=== PATIENT | female | born 1980 | race Caucasian/White ===

== ENCOUNTER 2025-08-05 10:10 | Observation (INO) ==
--- NOTE | 2025-08-05 10:47 | Emergency Department Note ---
Impression & Plan Urticaria ED Provider Note NAME: KARLA HUSAIN AGE: 44 SEX: F : 1980 ARRIVES VIA: Walk-In INFORMANT: Patient, ED PROVIDER(S): Winston Bazan DO CHIEF COMPLAINT: Urticaria HPI: The patient is a 44-year-old female who was sent to the emergency department by her primary care physician for admission for IV steroids. The patient started having urticaria 10 days ago. She has been on high doses of steroids. She does not seem to be doing better and was sent to the emergency department today by her primary care physician for admission. ROS: See above HPI for pertinent positives & negatives. A total of 10 systems reviewed and were otherwise negative. PAST MEDICAL HISTORY: See Below PAST SURGICAL HISTORY: See Below FAMILY HISTORY: See Below SOCIAL HISTORY: See Below HOME MEDICATIONS: See Below ALLERGIES: See Below VITALS: See Below PHYSICAL EXAMINATION: GENERAL: The patient is awake and alert. She appears somewhat anxious. EYES: The conjunctivae are injected bilaterally. The pupils are round and reactive. EARS, NOSE, MOUTH AND THROAT: The nose is without any evidence of any deformity. Mucous membranes are moist. Tongue is midline. NECK: The neck is nontender and supple. RESPIRATORY: Normal respiratory effort is noted there is no evidence of wheezing rhonchi or rales CARDIOVASCULAR: Regular rate and rhythm noted there no murmurs rubs or gallops normal S1 normal S2. GASTROINTESTINAL: The abdomen is soft. Abdomen is nontender. MUSCULOSKELETAL/EXTREMITIES: There is no evidence of gross deformity full range of motion is noted in the hips and shoulders. SKIN: There is diffuse urticaria noted from the abdomen up to the face as well as the arms. NEUROLOGIC: Patient is awake alert and oriented x3 MEDICAL DECISION MAKING: The patient is a 44-year-old female who presented to the emergency department for an evaluation of rash. The patient was seen by her primary care physician today. She was sent to the emergency department at the request of dermatology. The patient has a history of a recent thrombotic stroke. It is unclear if the patient's condition is secondary to an aspirin allergy. She did stop aspirin as well as her Plavix. The patient continues to worsen despite being treated with oral steroids. I discussed the patient's condition with her primary care physician. I discussed the patient's condition [facility]. It is possible the patient may have some underlying rheumatologic issue which could link her stroke symptoms as well as her urticaria at this time. Triage Nursing notes reviewed. Prior medical records reviewed Vital Signs: reviewed and remarkable for no significant abnormalities Differential diagnosis: Contact dermatitis, viral exanthem, urticaria, allergic reaction, Francis- Arvin syndrome, toxic epidermal necrolysis, erythema multiforme, cellulitis, scabies, HSV, varicella, zoster, eczema, staph scalded skin syndrome, fungal infection, as well as other pathologies. ER treatment provided: See below Diagnostics interpreted by me: ECG: none Cardiac Monitoring: An order was placed for continuous cardiac monitoring. The monitor shows a rate of 69 bpm with sinus rhythm. Laboratory studies: As stated above and show below. Imaging studies: See below. Consultation(s): I discussed this case with Gieslle who is on for the [facility] hospitalist group. Past Med/Surg History Problem List (Updated 08/05/25 @ 15:16 by Winston Bazan DO) Urticaria (Acute) Anxiety Medical History CVA (cerebral vascular accident) H/O pilonidal cyst Surgical History S/P breast augmentation Family History Mother Breast cancer Hypertension Grandfather Myocardial infarction Denies family history of Ovarian cancer Prostate cancer Colorectal cancer Social History Smoking Status: Never smoker Second Hand Exposure: No; Do You Dip or Chew Tobacco: No; Hx Alcohol Use: Yes Alcohol type: beer, wine and hard liquor Hx Substance Use: Yes Preferred Language: Divehi Visual Impairment: No Limitations Hearing Ability: Normal marital status: Current Living Situation: Family and Significant Other current occupational status: employed current occupation: retail Feels Safe at Home: Yes Dental Care, Regularly: Yes Physical Activity Frequency: Does not Exercise Allergies Allergies Allergy/AdvReac Type Severity Reaction Status Date / Time amoxicillin Allergy Unknown Unknown - Unverified 06/17/25 11:37 On file [facility] bee venom protein (honey bee) Allergy Unknown ANAPHYLAXIS Unverified 06/17/25 11:37 cefazolin Allergy Unknown "burning Verified 06/17/25 11:37 lungs Penicillins Allergy Unknown AMOXIL Verified 06/17/25 11:37 ALLERGY, RXN UNKNOWN Home Meds Home Medications Medication Instructions Recorded Confirmed desogestrel 0.15 mg-ethinyl 1 tab PO DAILY 06/15/25 08/05/25 estradiol 0.03 mg tablet (Apri) escitalopram oxalate 10 mg tablet 0 mg PO DAILY 06/15/25 08/05/25 lorazepam 0.5 mg tablet 0.5 mg PO TID PRN Anxiety 06/15/25 08/05/25 venlafaxine 75 mg capsule,extended 75 mg PO DAILY 06/15/25 08/05/25 release 24 hr clopidogrel 75 mg tablet 75 mg PO DAILY 08/05/25 08/05/25 cyclobenzaprine 5 mg tablet 5 mg PO DAILY PRN Other 08/05/25 08/05/25 folic acid 1 mg tablet 1 mg PO DAILY 08/05/25 08/05/25 prednisone 10 mg tablet 10 mg PO USEASDIRECTD 08/05/25 08/05/25 venlafaxine 37.5 mg 37.5 mg PO DAILY 08/05/25 08/05/25 capsule,extended release 24 hr Results & Data (ED) Vital Signs Vital Signs - 24 hr 08/05/25 10:14 08/05/25 10:50 08/05/25 10:50 Temperature 36.7 C Temperature Source Oral Pulse Rate 82 67 Pulse Rate [Apical] 67 Pulse Rhythm Regular Pulse Rhythm [Apical] Regular Pulse Strength [Apical] Normal Respiratory Rate 20 13 13 Respiratory Effort / Characteristics Non-Labored Spontaneous Non-Labored Spontaneous Respiratory Depth Normal Normal Respiratory Pattern Regular Blood Pressure 142/83 H Blood Pressure [Right Arm] 153/93 H Blood Pressure Mean 102 Blood Pressure Mean [Right Arm] 113 Blood Pressure Position [Right Arm] Sitting Pulse Oximetry 96 95 95 Oxygen Delivery Method Room Air Room Air Room Air Sepsis Recent Fever Within 48 Hours No Sepsis New/Unexplained Change in Mental Status N/A Sepsis Action Taken by Nursing No Action Required 08/05/25 11:16 Temperature Temperature Source Pulse Rate 60 Pulse Rate [Apical] Pulse Rhythm Pulse Rhythm [Apical] Pulse Strength [Apical] Respiratory Rate Respiratory Effort / Characteristics Respiratory Depth Respiratory Pattern Blood Pressure Blood Pressure [Right Arm] Blood Pressure Mean Blood Pressure Mean [Right Arm] Blood Pressure Position [Right Arm] Pulse Oximetry Oxygen Delivery Method Sepsis Recent Fever Within 48 Hours Sepsis New/Unexplained Change in Mental Status Sepsis Action Taken by [facility] Medications Current Medication List: was personally reviewed by me Laboratory Data Attestation: I reviewed the patient's lab results. 08/05/25 11:24 08/05/25 11:24 Lab Results 08/05/25 Range/Units 11:24 WBC 7.92 (4.8-10.8) K/ul RBC 5.05 (4.20-5.40) M/uL Hgb 15.2 (12.0-16.0) g/dl Hct 44.2 (37.0-47.0) % MCV 87.5 (80.0-100.0) fL MCH 30.1 (25.0-34.0) pg MCHC 34.4 (32.0-36.0) g/dL RDW Std Deviation 41.3 (36.4-46.3) fL RDW Coeff of Suzanne 12.9 (11.5-14.5) % Plt Count 291 (130-400) K/uL MPV 9.9 (9.4-12.4) fL Immature Gran % (Auto) 0.4 % Neut % (Auto) 70.9 % Lymph % (Auto) 23.0 % Mckean % (Auto) 5.6 % Eos % (Auto) 0.0 % Baso % (Auto) 0.1 % Neut # (Auto) 5.62 (1.40-6.50) K/uL Lymph # (Auto) 1.82 (1.20-3.40) K/uL Mckean # (Auto) 0.44 (0.11-0.59) K/uL Eos # (Auto) 0.00 (0.00-0.50) K/uL Baso # (Auto) 0.01 (0.00-0.20) K/uL Immature Gran # (Auto) 0.03 (0.01-0.20) K/uL Sodium 139 (136-145) mmol/L Potassium 3.8 (3.5-5.1) mmol/L Chloride 104 (98-107) mmol/L Carbon Dioxide 27 (21-32) mmol/L Anion Gap 8 (3-11) BUN 14 (6-23) mg/dl Creatinine 0.85 (0.6-1.2) mg/dl Est Cr Clr Drug Dosing 97.8 ml/min eGFR 86.58 BUN/Creatinine Ratio 16.5 (10-20) Glucose 113 H (70-99(Fasting)) mg/dl Calcium 9.4 (8.6-10.3) mg/dl Total Bilirubin 0.3 (0.2-1.0) mg/dl AST 32 (13-39) U/L ALT 127 H (7-52) U/L Alkaline Phosphatase 48 (34-104) U/L C-Reactive Protein < 0.50 (0-0.5) mg/dl Total Protein 7.4 (6.0-8.3) gm/dl Albumin 4.5 (3.4-5.0) gm/dl Globulin 2.9 (2.5-4.0) gm/dl Albumin/Globulin Ratio 1.6 (0.9-2) HCG, Qual Negative (Negative) Administered Medications Diphenhydramine HCl (Diphenhydramine 50 Mg/Ml Vial) 25 mg IV Q8H PRN PRN Reason: Hives Stop: 09/04/25 13:06 Last Admin: 08/05/25 13:37 Dose: 25 mg Documented By: RONNELL Hydroxyzine HCl (Hydroxyzine Hcl 25 Mg Tab) 25 mg PO Q8H PRN PRN Reason: Itching Stop: 09/04/25 13:07 Last Admin: 08/05/25 13:37 Dose: 25 mg Documented By: RONNELL Discontinued Medications Dexamethasone Sodium Phosphate (DexamethasonePf 10 Mg/Ml Vial) 10 mg IV NOW ONE Stop: 08/05/25 10:36 Last Admin: 08/05/25 11:20 Dose: 10 mg Documented By: ASHLEY Diphenhydramine HCl (Diphenhydramine 50 Mg/Ml Vial) 25 mg IV NOW STA Stop: 08/05/25 10:36 Last Admin: 08/05/25 11:20 Dose: 25 mg Documented By: ASHLEY Famotidine (Pepcid 20mg Iv Push) 20 mg in 5 mls @ 2.5 mls/min IV NOW STA Stop: 08/05/25 10:36 Last Admin: 08/05/25 11:20 Dose: 2.5 mls/min Documented By: ASHLEY Discharge Plan Visit Data Chief Complaint: Rash Stated Complaint: HIVES THAT WON'T GO AWAY W/ TREATMENT ED Provider: Winston Bazan Discharge Problem: Urticaria Patient Disposition: Admitted As Inpatient Condition: Fair Discharge Instructions Interventions: ED Discharge Assessment Last Done: 08/05/25 12:33
[2025-08-05] MEDS: dexAMETHasone**PF** 10 MG/ML VIAL IV ONE (11:20)
[2025-08-05] MEDS: diphenhydrAMINE 50 MG/ML VIAL IV STA (11:20)
[2025-08-05] MEDS: FAMOTIDINE 20MG IV PUSH 20 MG/5 ML SYR IV STA (11:20)
--- NOTE | 2025-08-05 11:22 | History & Physical Report ---
Date of Service August 05, 2025 Assessment & Plan (1) Urticaria: (2) Anxiety: (3) History of CVA (cerebrovascular accident): Plan This is a 44 y/o female with recent acute right MCA stroke s/p TNK and thrombectomy and other history as outlined who presents to the ED today from her PCP office with refractory hives for ten days. Initial labs in the ED unremarkable other than elevated ALT of 127. Outpatient PCP notes and labs reviewed - recent testing for tickborne illnesses were negative. Pt has not significantly improved with oral medications including prednisone and antihistamines so she was sent to the ED for consideration of IV steroids and subsequently referred for admission. She is currently off aspirin due to concern for potential allergy, has not started recommended Plavix. #Refractory hives - Observe on med telemetry - Continue IV decadron daily - Continue cetirizine BID, prn diphenhydramine, add prn hydroxyzine - Will ultimately need evaluation by allergy/immunology - Check additional labs including hepatitis C antibody, TAMEKA, AMA, CRP for possible vasculitis - Continue to hold most of her outpatient medications - will continue the Effexor and Ambien for now #Recent CVA - Currently off anti-platelet therapy - Plavix has been recommended but pt has preferred to wait on starting until current symptoms are under better control - Continue to follow with neurology outpatient Pt seen and reviewed with collaborating physician, Dr. Barrera. Plan of care discussed and as outlined above. Code status: full code DVT prophylaxis: SCDs I spent a total of 75 minutes coordinating, documenting, and providing care for this patient excluding time spent in the performance of separately billed services or time spent by another provider/QHP. [place] Islas PA-C History of Present Illness Chief Complaint: refractory hives Primary Care Provider: Nicholas Armenta MD This is a 44 y/o female with recent acute right MCA stroke s/p TNK and thrombectomy and other history as outlined who presents to the ED today from her PCP office with refractory hives for ten days. She reports that she started with a few hives on her chest about ten days ago (07/26/25). Then hives seemed to spread to her face and back. Worsened about five days ago. She had been taking OTC Benadryl, which did not seem to help. Saw PCP office on 08/01/25. Hives thought secondary to aspirin, which she started after a stroke in late May. Provider spoke with dermatology who agreed that hives likely secondary to the aspirin and recommended a course of prednisone and stopping the aspirin. PCP also spoke with neurology due to recent CVA who recommended change from aspirin to Plavix. Pt reports no significant improvement on the prednisone so went back to PCP office today, saw a different provider. This provider also spoke with dermatology who recommended pt go to the ED to be admitted for IV steroids. Currently, pt reports hives on face, chest, back that are very pruritic. She reports taking up to 40 mg of cetirizine multiple times per day without significant relief. She has not yet started the Plavix as she was anxious about starting a new medication with her current symptoms. She has stopped most of her home medications other than Effexor and Ambien. She also notes started tretinoin in June, drinking Kombucha in June. Outpatient PCP notes from last three months were extensively reviewed. Allergies Allergy/AdvReac Type Severity Reaction Status Date / Time amoxicillin Allergy Unknown Unknown - Unverified 06/17/25 11:37 On file [facility] bee venom protein (honey bee) Allergy Unknown ANAPHYLAXIS Unverified 06/17/25 11:37 cefazolin Allergy Unknown "burning Verified 06/17/25 11:37 lungs Penicillins Allergy Unknown AMOXIL Verified 06/17/25 11:37 ALLERGY, RXN UNKNOWN Home Medications Medication Instructions Recorded Confirmed Type desogestrel 0.15 mg-ethinyl 1 tab PO DAILY 06/15/25 08/05/25 History estradiol 0.03 mg tablet (Apri) escitalopram oxalate 10 mg tablet 0 mg PO DAILY 06/15/25 08/05/25 History lorazepam 0.5 mg tablet 0.5 mg PO TID PRN Anxiety 06/15/25 08/05/25 History venlafaxine 75 mg capsule,extended 75 mg PO DAILY 06/15/25 08/05/25 History release 24 hr clopidogrel 75 mg tablet 75 mg PO DAILY 08/05/25 08/05/25 History cyclobenzaprine 5 mg tablet 5 mg PO DAILY PRN Other 08/05/25 08/05/25 History folic acid 1 mg tablet 1 mg PO DAILY 08/05/25 08/05/25 History prednisone 10 mg tablet 10 mg PO USEASDIRECTD 08/05/25 08/05/25 History venlafaxine 37.5 mg 37.5 mg PO DAILY 08/05/25 08/05/25 History capsule,extended release 24 hr Past Med/Surg History Problem List (Updated 08/05/25 @ 18:20 by Denise Islas PA-C) History of CVA (cerebrovascular accident) Urticaria (Acute) Anxiety Medical History CVA (cerebral vascular accident) H/O pilonidal cyst Surgical History S/P breast augmentation Family History Mother Breast cancer Hypertension Grandfather Myocardial infarction Denies family history of Ovarian cancer Prostate cancer Colorectal cancer Social History Smoking Status: Never smoker Second Hand Exposure: No; Do You Dip or Chew Tobacco: No; Hx Alcohol Use: Yes Alcohol type: beer, wine and hard liquor Hx Substance Use: Yes Preferred Language: Upper Sorbian Visual Impairment: No Limitations Hearing Ability: Normal marital status: Current Living Situation: Family and Significant Other current occupational status: employed current occupation: retail Feels Safe at Home: Yes Dental Care, Regularly: Yes Physical Activity Frequency: Does not Exercise Review of Systems Review of Systems: All systems reviewed & are unremarkable except as noted in Subjective Physical Exam Physical Exam: General: awake, alert, NAD but appears anxious HEENT: no oropharyngeal edema, no facial droop Neck: supple, trachea midline Heart: RRR, no M/G/R Lungs: CTA bilaterally, no W/R/R Abdomen: soft, NT, +BS Skin: erythematous wheals on face, chest, entire back with areas of confluence Neurologic: Ox3, no confusion or dysarthria, moving all extremities without gross focal deficit Results & Data Results & Data Vital Signs (Past 12 Hours) Vital Signs Temp Pulse Pulse Resp BP BP Pulse Ox 08/05/25 11:16 60 08/05/25 10:50 67 13 153/93 H 95 08/05/25 10:50 67 13 95 08/05/25 10:14 36.7 C 82 20 142/83 H 96 O2 Del Method 08/05/25 11:16 08/05/25 10:50 Room Air 08/05/25 10:50 Room Air 08/05/25 10:14 Room Air Laboratory Results Lab Results 08/05/25 08/05/25 Range/Units 11:24 14:17 WBC 7.92 (4.8-10.8) K/ul RBC 5.05 (4.20-5.40) M/uL Hgb 15.2 (12.0-16.0) g/dl Hct 44.2 (37.0-47.0) % MCV 87.5 (80.0-100.0) fL MCH 30.1 (25.0-34.0) pg MCHC 34.4 (32.0-36.0) g/dL RDW Std Deviation 41.3 (36.4-46.3) fL RDW Coeff of Suzanne 12.9 (11.5-14.5) % Plt Count 291 (130-400) K/uL MPV 9.9 (9.4-12.4) fL Immature Gran % (Auto) 0.4 % Neut % (Auto) 70.9 % Lymph % (Auto) 23.0 % Bonner % (Auto) 5.6 % Eos % (Auto) 0.0 % Baso % (Auto) 0.1 % Neut # (Auto) 5.62 (1.40-6.50) K/uL Lymph # (Auto) 1.82 (1.20-3.40) K/uL Bonner # (Auto) 0.44 (0.11-0.59) K/uL Eos # (Auto) 0.00 (0.00-0.50) K/uL Baso # (Auto) 0.01 (0.00-0.20) K/uL Immature Gran # (Auto) 0.03 (0.01-0.20) K/uL Sodium 139 (136-145) mmol/L Potassium 3.8 (3.5-5.1) mmol/L Chloride 104 (98-107) mmol/L Carbon Dioxide 27 (21-32) mmol/L Anion Gap 8 (3-11) BUN 14 (6-23) mg/dl Creatinine 0.85 (0.6-1.2) mg/dl Est Cr Clr Drug Dosing 97.8 ml/min eGFR 86.58 BUN/Creatinine Ratio 16.5 (10-20) Glucose 113 H (70-99(Fasting)) mg/dl Calcium 9.4 (8.6-10.3) mg/dl Total Bilirubin 0.3 (0.2-1.0) mg/dl AST 32 (13-39) U/L ALT 127 H (7-52) U/L Alkaline Phosphatase 48 (34-104) U/L C-Reactive Protein < 0.50 (0-0.5) mg/dl Total Protein 7.4 (6.0-8.3) gm/dl Albumin 4.5 (3.4-5.0) gm/dl Globulin 2.9 (2.5-4.0) gm/dl Albumin/Globulin Ratio 1.6 (0.9-2) HCG, Qual Negative (Negative) Hepatitis C Antibody Negative (Negative) Supervising Physician Co-Signing Physician Notes Attending addendum: Patient was seen and examined in emergency room in presence of the She has been complaining of hives involving mainly the upper part of the body Started initially over her chest and then involve upper arms and also upper part of the abdomen and face which started on 07/26/2025. She has had feverish feeling initially but no longer since then She was seen by PCP x 2 and also project management today and was advised to come to the hospital to get IV steroid Her new medication was tretinoin cream and also aspirin that has been following the stroke Denies any shortness of breath, any nausea no vomiting On examination Lying in bed without any significant symptoms but looks very anxious Erythematous rash with hives involving the face upper part of the body and also upper extremities Chestclear to auscultate bilaterally HeartS1-S2, regular Abdomenbenign Extremitieshas trace edema bilaterally CNSalert, awake and oriented x 3 no focal sensory or no motor deficit a ppreciated Her admission labs are unremarkable except ALT minimally high at 117 Recent outpatient lab including Lyme titers and anaplasmosis were negative Generalized hives involving mainly the face and the upper part of the body with itchiness No cause has been identified but tretinoin ointment could be the cause and she will need to have outpatient customer service and sales consultant to evaluate the condition further She will be given symptomatic medications including intravenous steroid Hepatitis C antibody and AMA and TAMEKA will be sent Other medical conditions are stable and as above Agree with assessment and plan as outlined by Ellen Islas PA-C and take the full responsibility of care in the hospital DR Bernabe Barrera
[2025-08-05 11:45] LABS: Hematocrit (blood only) 44.2 % (37.0-47.0); Hemoglobin 15.2 g/dl (12.0-16.0); Immature Granulocytes # (auto) 0.03 K/uL (0.01-0.20); Immature Granulocytes % (auto) 0.4 %; Mean Corpuscular Hemoglobin 30.1 pg (25.0-34.0); Mean Corpuscular Volume 87.5 fL (80.0-100.0); Platelet Count 291 K/uL (130-400); RDW Standard Deviation 41.3 fL (36.4-46.3); Red Blood Count 5.05 M/uL (4.20-5.40); White Blood Count 7.92 K/ul (4.8-10.8)
[2025-08-05 12:00] LABS: Alanine Aminotransferase 127 U/L (7-52); Albumin Globulin Ratio 1.6 (0.9-2); Alkaline Phosphatase 48 U/L (34-104); Anion Gap 8 (3-11); Bilirubin,Total 0.3 mg/dl (0.2-1.0); Blood Urea Nitrogen 14 mg/dl (6-23); Calcium 9.4 mg/dl (8.6-10.3); Carbon Dioxide 27 mmol/L (21-32); Chloride 104 mmol/L (98-107); Creatinine Clr Calc Pharmacy 97.8 ml/min; Globulin 2.9 gm/dl (2.5-4.0); Glucose 113 mg/dl (70-99(Fasting)); Potassium 3.8 mmol/L (3.5-5.1); Sodium 139 mmol/L (136-145); Total Protein 7.4 gm/dl (6.0-8.3)
[2025-08-05 12:09] LABS: Pregnancy Test, Serum Negative (Negative)
[2025-08-05] MEDS ORDERED: ACETAMINOPHEN 325 MG TAB PO PRN (12:32)
[2025-08-05 12:39] VITALS: O2SAT 98
[2025-08-05] MEDS: diphenhydrAMINE 50 MG/ML VIAL IV PRN (13:37)
[2025-08-05] MEDS ORDERED: CALAMINE/PRAMOXINE LOTION 180 APPLN/180 ML BTL EXT PRN (15:17)
[2025-08-05] MEDS: MELATONIN 3 MG TAB PO PRN (15:45)
--- NOTE | 2025-08-05 19:04 | Allergy & Immunology Consult ---
Date of Consultation August 05, 2025 Assessment & Plan (1) Urticaria: Plan This is a 44-year-old female who presents with urticaria Classify as acute urticaria. First of all, this is not consistent with an aspirin allergic reaction. She was on aspirin for over a month and tolerated this and despite stopping aspirin the rash has not improved. This is not how an aspirin allergy would present. Moving forward, I would recommend she restart the 81 mg dose of aspirin for p rotection given the recent stroke. We discussed that idiopathic urticaria is the most common cause for acute cases of hives like this. It often is triggered by combination of factors and any recent health changes like a stroke can make patients more susceptible. In addition, she also went off of her control pill, and there often is a hormonal component to this. Furthermore, she may have had a fever when the hives first started and viral infections are yet another common trigger for acute urticaria. We discussed that in most cases it is a combination of factors that can trigger these types of episodes. In terms of additional diagnostic testing, a tryptase is pending which will be very helpful. Other blood work was unremarkable except for an elevated ALT. A TSH could be helpful, as approximately 5% of cases of urticaria could be associated with hypo or hyperthyroidism. However, we can order this as an outpatient if needed. In terms of treatment, I recommend the following regimen which I feel will be more effective than the current: 1. Cetirizine 20 mg p.o. twice daily 2. Famotidine 40 mg p.o. twice daily 3. Hydroxyzine 50 mg at bedtime. 4. For breakthrough symptoms hydroxyzine 25 mg every 6 hours as needed. This has a longer half-life than Benadryl and the skin and should work better. 5. Switch to dexamethasone as a steroid. I would recommend 10-15 mg daily while in the hospital, which would be slightly higher than 40-60 mg of prednisone. If this regimen is not working, we have room that we can either increase the hydroxyzine at bedtime or get dose of dexamethasone. Once her symptoms start improving, she can be discharged and we can manage things as an outpatient. We discussed that this type of hives is not dangerous. It would not have a risk of airway compromise, hypotension, or bronchospasm. As result, once things are improving she no longer will need inpatient care. Total time for today is 60 minutes which includes reviewing records prior to patient arrival, the [id number] visit, as well as time to record documentation after patient departure. History of Present Illness Attending Physician: Jamir Barrera MD History of Present Illness This is a 44-year-old female who recently suffered a stroke in May. She was on oral contraceptives at that time which was stopped and she was discharged on aspirin 81 mg daily and folic acid. She felt like she completely recovered and things are going well up until around 26 July. She started getting hives on the chest which then spread to other parts of the body. Her noted that even before this she would get some red areas the hives have gotten progressively worse. On the upper chest that they thought was stress related that would come and go within 24 hours. The hives have gotten progressively worse. Initially this was thought to be caused by an allergy to aspirin. However she was on aspirin for least a month when she started getting hives. She stopped the aspirin but the hives have not gotten better and infective gotten worse. She was prescribed Plavix, but did not initiate this because she was worried about it potentially worsening her rash. She was initially treating this with Benadryl that she would use about every 8 hours when she got really itchy. It seemed to help somewhat with the itching, but the hives kept progressing despite it. Her primary doctor recommended that they switch to Claritin and she was doing 40 mg twice daily but did not see significant benefit. She was then started on prednisone but despite taking 60 mg was not seeing any benefit. If anything she felt like after taking prednisone symptoms were actually worsening. She was directed to the emergency room because the hives are not responding to treatment. We reviewed her history and her no other new medications. There is no temporal relationship to foods or other environmental triggers. She did note a low-grade fever at the very beginning when the hives are starting, but this has since resolved. Allergies Allergy/AdvReac Type Severity Reaction Status Date / Time amoxicillin Allergy Unknown Unknown - Unverified 06/17/25 11:37 On file [facility] bee venom protein (honey bee) Allergy Unknown ANAPHYLAXIS Unverified 06/17/25 11:37 cefazolin Allergy Unknown "burning Verified 06/17/25 11:37 lungs Penicillins Allergy Unknown AMOXIL Verified 06/17/25 11:37 ALLERGY, RXN UNKNOWN Home Medications Medication Instructions Recorded Confirmed Type desogestrel 0.15 mg-ethinyl 1 tab PO DAILY 06/15/25 08/05/25 History estradiol 0.03 mg tablet (Apri) escitalopram oxalate 10 mg tablet 0 mg PO DAILY 06/15/25 08/05/25 History lorazepam 0.5 mg tablet 0.5 mg PO TID PRN Anxiety 06/15/25 08/05/25 History venlafaxine 75 mg capsule,extended 75 mg PO DAILY 06/15/25 08/05/25 History release 24 hr clopidogrel 75 mg tablet 75 mg PO DAILY 08/05/25 08/05/25 History cyclobenzaprine 5 mg tablet 5 mg PO DAILY PRN Other 08/05/25 08/05/25 History folic acid 1 mg tablet 1 mg PO DAILY 08/05/25 08/05/25 History prednisone 10 mg tablet 10 mg PO USEASDIRECTD 08/05/25 08/05/25 History venlafaxine 37.5 mg 37.5 mg PO DAILY 08/05/25 08/05/25 History capsule,extended release 24 hr Patient History Medical History CVA (cerebral vascular accident) H/O pilonidal cyst Surgical History S/P breast augmentation Family History Mother Breast cancer Hypertension Grandfather Myocardial infarction Denies family history of Ovarian cancer Prostate cancer Colorectal cancer Social History Smoking Status: Never smoker Second Hand Exposure: No; Do You Dip or Chew Tobacco: No; Hx Alcohol Use: Yes Alcohol type: beer, wine and hard liquor Hx Substance Use: Yes Preferred Language: [place] Visual Impairment: No Limitations Hearing Ability: Normal marital status: Current Living Situation: Family and Significant Other current occupational status: employed current occupation: retail Feels Safe at Home: Yes Dental Care, Regularly: Yes Physical Activity Frequency: Does not Exercise Review of Systems Review of Systems: As per HPI otherwise negative. Physical Exam Constitutional: WD/WN, vitals as above no altered mental status and not in distress Eyes: no eyelid abnormality, no conjunctival abnormality and sclerae not anicteric ENMT: Ears: no TM abnormality and able to visualize TM Nose: no turbinate abnormality, no nasal mucous membrane abnormality, no nasal discharge, nasal mucous membranes not dry and no nasal polyps Mouth: no lip abnormality Throat: uvula midline; no tonsil abnormality Neck: trachea midline Thyroid: normal thyroid Respiratory: no retractions, does not use accessory muscles, no cough, normal respiratory pattern, expiratory phase not prolonged and no audible wheezes Auscultation: lungs clear to auscultation bilaterally; no crackles, no rhonchi and no wheezes Cardiovascular: Rate/Rhythm: regular rate and regular rhythm Heart Sounds: normal S1 and normal S2; no murmur and no cardiac rub Extremities: no edema Gastrointestinal (Abdomen): Inspection/Auscultation: abdomen normal to inspection and normal bowel sounds Percussion/Palpation: abdomen nontender Musculoskeletal: Head/Neck/Chest: + head abnormal to inspection Skin: no rashes, no dry skin and no erythema Neurologic: awake; not confused Psychiatric: A+Ox3, euthymic affect Lymphatic: no lymphadenopathy Results & Data Vital Signs (Past 12 Hours) Vital Signs Temp Pulse Pulse Resp BP BP Pulse Ox 08/05/25 13:16 69 20 142/92 H 98 08/05/25 12:38 08/05/25 12:38 62 22 98 08/05/25 11:46 58 L 14 97 08/05/25 11:16 60 08/05/25 10:50 67 13 153/93 H 95 08/05/25 10:50 67 13 95 08/05/25 10:14 36.7 C 82 20 142/83 H 96 Pulse Ox O2 Del Method O2 Del Method 08/05/25 13:16 Room Air 08/05/25 12:38 98 Room Air 08/05/25 12:38 Room Air 08/05/25 11:46 Room Air 08/05/25 11:16 08/05/25 10:50 Room Air 08/05/25 10:50 Room Air 08/05/25 10:14 Room Air Coding Level of Care Code 20326 IN/OBS CONSULT LVL 4,60M Diagnoses Urticaria L50.9
[2025-08-05] MEDS: FAMOTIDINE 40 MG TABLET PO SCH (20:28)
[2025-08-05] MEDS: CETIRIZINE HCL 10 MG TABLET PO SCH (20:29)
[2025-08-05] MEDS ORDERED: CETIRIZINE HCL 10 MG TABLET PO SCH (21:00)
[2025-08-05] MEDS: ZOLPIDEM TARTRATE 5 MG TAB PO STA (23:38)
--- NOTE | 2025-08-06 08:14 | Allergy & Immunology Prog Note ---
Date of Service August 06, 2025 Assessment & Plan (1) Urticaria: Plan She has continued to get significant symptoms despite the initial medication unfortunately, her hives are somewhat atypical in the sense that allergy cocktail. They are not responding well to typical doses of prednisone. This often is the case and acute urticaria. Sometimes it does take a while for the hives to run their course even with these medications. I recommend the following changes: 1. Increase the Decadron to 10 mg IV or p.o. twice daily for the next few days until we can get control of the hives and noted to start tapering. I hate to put her at this bigger the dose so close to her stroke a month and a half ago, but I suspect this will be the only medication that we will get the hives under control. 2. Continue the antihistamine regimen and the Pepcid, though these are likely providing minimal benefit right now. However they should hopefully prevent the hives from flaring back up once we get controlled. 3. If despite the bigger dose of Decadron, she continues to be itchy and the hives are fading, we could consider adding gabapentin purely for itch relief. This can be helpful when antihistamines are not helping with the itch. 4. In terms of disposition, the hives themselves are not dangerous so they still need to be resolved for her to go home. However, I would like to see improvement itch and at least some fading of the hives before she could be discharged. Admission and Anticipated Discharge Date Admission Date: August 05, 2025 Subjective She does not see significant benefit with the allergy medication cocktail that we started. She was given 10 mg of Decadron in the ER yesterday morning, 50 mg of hydroxyzine, 40 mg of Pepcid, 20 mg of cetirizine. She has continued to get the same degree of itching and the hives have not faded on the face, chest, back. The lower legs continue to be free of hives. Blood work has been un remarkable including a normal white blood cell count, unremarkable differential, low CRP. The only abnormality was an elevation in ALT that was relatively mild. Review of Systems Review of Systems: Per HPI otherwise 14 point review systems negative Physical Exam Constitutional: WD/WN, vitals as above Eyes: no conjunctival abnormality and sclerae not anicteric ENMT: external ear and nose normal, oropharynx normal Neck: trachea midline Respiratory: normal respiratory effort and able to speak in complete sentences; does not use accessory muscles Musculoskeletal: Head/Neck/Chest: head atraumatic Gait: normal gait Skin: + rash (Unchanged from yesterday); no le sions Psychiatric: A+Ox3, euthymic affect Results & Data Vital Signs (Past 12 Hours) Vital Signs Temp Pulse Pulse Resp BP Pulse Ox O2 Del Method 08/06/25 07:40 63 08/06/25 03:05 36.9 C 61 18 133/87 98 Room Air 08/05/25 23:23 62 08/05/25 23:20 36.7 C 60 16 135/82 97 Room Air PG Care Time/CCT Total # of Minutes Spent Total Time Spent with Patient: Total time spent is greater than 50% in coordination of care (as documented) at patient's floor/unit and/or counseling patient: 25 minutes. Coding Level of Care Code 03933 SUB INP/OBS CARE /25MIN Diagnoses Urticaria L50.9
[2025-08-06 08:17] VITALS: RESP 16
[2025-08-06 08:32] LABS: Hematocrit (blood only) 46.6 % (37.0-47.0); Hemoglobin 15.2 g/dl (12.0-16.0); Immature Granulocytes # (auto) 0.03 K/uL (0.01-0.20); Immature Granulocytes % (auto) 0.3 %; Mean Corpuscular Hemoglobin 28.7 pg (25.0-34.0); Mean Corpuscular Volume 87.9 fL (80.0-100.0); Platelet Count 328 K/uL (130-400); RDW Standard Deviation 42.2 fL (36.4-46.3); Red Blood Count 5.30 M/uL (4.20-5.40); White Blood Count 11.08 K/ul (4.8-10.8)
[2025-08-06 08:50] LABS: Alanine Aminotransferase 106.0 U/L (7-52); Alkaline Phosphatase 46.0 U/L (34-104); Anion Gap 10.0 (3-11); Bilirubin,Total 0.4 mg/dl (0.2-1.0); Blood Urea Nitrogen 15.0 mg/dl (6-23); Calcium 9.3 mg/dl (8.6-10.3); Carbon Dioxide 27.0 mmol/L (21-32); Chloride 103.0 mmol/L (98-107); Creatinine Clr Calc Pharmacy 93.6 ml/min; Glucose 92.0 mg/dl (70-99(Fasting)); Potassium 3.5 mmol/L (3.5-5.1); Sodium 140.0 mmol/L (136-145); Total Protein 7.3 gm/dl (6.0-8.3)
[2025-08-06] MEDS: dexAMETHasone 10 MG in SYRINGE 0 ML IV SCH (11:13)
[2025-08-06 11:32] VITALS: BP 136/88; TEMP 97.9
[2025-08-06 13:01] VITALS: PULSE 69
--- NOTE | 2025-08-06 13:53 | Discharge Summary ---
Discharge Summary Date of Service August 06, 2025 Principal Dx & Hospital Course #1 = Principal Diagnosis (1) Urticaria: (2) Anxiety: (3) History of CVA (cerebrovascular accident): Plan This is a 44 y/o female with recent acute right MCA stroke s/p TNK and thrombectomy and other history as outlined who presents to the ED today from her PCP office with refractory hives for ten days. Initial labs in the ED unremarkable other than elevated ALT of 127. Outpatient PCP notes and labs reviewed - recent testing for tickborne illnesses were negative. Pt has not significantly improved with oral medications including prednisone and antihistamines so she was sent to the ED for consideration of IV steroids and subsequently referred for admission. She is currently off aspirin due to concern for potential allergy, has not started recommended Plavix. #Refractory hives - Observe on med telemetry - increase IV decadron bid - Continue cetirizine BID, HS hydroxyzine, add prn hydroxyzine - continue famotidine bid - allergy consulted, appreciate recs #Recent CVA - Currently off anti-platelet therapy - Plavix has been recommended but pt has preferred to wait on starting until current symptoms are under better control - Continue to follow with neurology outpatient Notes For Next Care Provider 44 y/o female with recent acute right MCA stroke s/p TNK and thrombectomy and other history as outlined who presents to the ED today from her PCP office with refractory hives for ten days. Admitted for refractory rash. Allergy consulted, recommended medications for acute idiopathic urticaria. Itching improved with decadron and medication management. Allergy f/u in clinic scheduled. on 08/06/2025 patient medically stable for discharge home. To do: [ ] f/u with polishing machine tender [ ] repeat CMP in one month for ALT elevation Medication Changes From Visit -cetirizine, hydroxyzine, decadron bid, famotidine, calamine Admission HPI Per Admitting Provider This is a 44 y/o female with recent acute right MCA stroke s/p TNK and thrombectomy and other history as outlined who presents to the ED today from her PCP office with refractory hives for ten days. She reports that she started with a few hives on her chest about ten days ago (07/26/25). Then hives seemed to spread to her face and back. Worsened about five days ago. She had been taking OTC Benadryl, which did not seem to help. Saw PCP office on 08/01/25. Hives thought secondary to aspirin, which she started after a stroke in late May. Provider spoke with dermatology who agreed that hives likely secondary to the aspirin and recommended a course of prednisone and stopping the aspirin. PCP also spoke with neurology due to recent CVA who recommended change from aspirin to Plavix. Pt reports no significant improvement on the prednisone so went back to PCP office today, saw a different provider. This provider also spoke with dermatology who recommended pt go to the ED to be admitted for IV steroids. Currently, pt reports hives on face, chest, back that are very pruritic. She reports taking up to 40 mg of cetirizine multiple times per day without significant relief. She has not yet started the Plavix as she was anxious about starting a new medication with her current symptoms. She has stopped most of her home medications other than Effexor and Ambien. She also notes started tretinoin in June, drinking Kombucha in June. Outpatient PCP notes from last three months were extensively reviewed. Discharge Exam Gen: A&O 3 NAD HEENT: NCAT, EOMI, not icteric. External ears normal. No rhinorrhea. Moist mucous membranes. Neck: Supple, full range of motion, no observable masses, No meningeal sign. Lungs: No Respiratory distress. CV: RRR, no edema. Abdomen: urticarial rash on chest and face MSK: No joint swelling, no redness. Skin: see above Neuro: Normal Gait, Grossly intact. Psych: Appropriate for situation. Updated Medication List Medication Instructions Recorded Confirmed Type desogestrel 0.15 mg-ethinyl 1 tab PO DAILY 06/15/25 08/05/25 History estradiol 0.03 mg tablet (Apri) escitalopram oxalate 10 mg tablet 0 mg PO DAILY 06/15/25 08/05/25 History lorazepam 0.5 mg tablet 0.5 mg PO TID PRN Anxiety 06/15/25 08/05/25 History venlafaxine 75 mg capsule,extended 75 mg PO DAILY 06/15/25 08/05/25 History release 24 hr cyclobenzaprine 5 mg tablet 5 mg PO DAILY PRN Other 08/05/25 08/05/25 History venlafaxine 37.5 mg 37.5 mg PO DAILY 08/05/25 08/05/25 History capsule,extended release 24 hr cetirizine 10 mg tablet 20 mg (2 x 10 mg) PO BID 14 days 08/06/25 Rx #56 tabs dexamethasone 2 mg tablet 10 mg (5 x 2 mg) PO BID 7 days #70 08/06/25 Rx tabs famotidine 40 mg tablet 40 mg PO BID 14 days #28 tabs 08/06/25 Rx hydroxyzine HCl 25 mg tablet 25 mg PO Q6H PRN itching 14 days 08/06/25 Rx #30 tabs hydroxyzine HCl 25 mg tablet 50 mg (2 x 25 mg) PO HS 14 days 08/06/25 Rx #28 tabs pramoxine-calamine 1 %-8 % lotion 1 applic EXT BID PRN itching 14 08/06/25 Rx (Calamine Medicated) days #177 mL Hospital Stay Data Consultations 08/05/25 11:01 ED Decision to Admit Stat 08/05/25 17:17 Consult Allergy / Immunology Routine Pending Results Patient Have Any Pending Studies at Discharge: No Discharge Instructions Given to Patient (Per Discharging Provider) Diagnosis: idiopathic urticaria Follow Ups: PCP, polishing machine tender 1. Please follow up with PCP and allergy medicine. 2. Take medications as prescribed. Total Time Total Time Spent Total Time Spent (In Minutes): I spent a total of 35 minutes in direct patient care, including [id number] time with the patient and/or family, reviewing medical records, ordering and reviewing diagnostic tests, and coordinating care with other healthcare providers. This time includes: history taking, physical examination, medical decision making, counseling, ECG interpretation, imaging interpretation, lab interpretation, orders, and education, excluding time spent in the performance of separately billed services.
[2025-08-06] MEDS ORDERED: dexAMETHasone 10 MG in SYRINGE 0 ML IV SCH (21:00)
[2025-08-08 15:57] LABS: Anti Mitochondrial Antibody NEGATIVE (NEGATIVE); Anti Nuclear Antibody Screen NEGATIVE (NEGATIVE)
== END 2025-08-06 14:08 | disposition home or self-care (01) | DRG 607 ==
LOC: ED 10:10 → EDINP 10:10 → INTOOBSV 11:31 → SUATTDRO 11:51 → 2N 23:08